=== PATIENT | female | born 1975 | race African-American/Black ===

== ENCOUNTER 2023-07-13 15:13 | Inpatient (IN) | payer OTHER ==
[2023-07-13] MEDS ORDERED: SODIUM CHLORIDE 1,000 ML IV STA (16:09)
[2023-07-13 16:33] LABS: BASO % 0.5 % (0-2.0); EOS % 1.9 % (0-4.5); HEMATOCRIT 44.3 % (32.4-45.2); HEMOGLOBIN 14.8 GM/dL (10.7-15.3); LYMPH % 29.9 % (8-40); MCH 26.7 pg (25.7-33.7); MCHC 33.4 g/dl (32.0-36.0); MEAN PLT VOLUME 8.3 fl (7.5-11.1); MONO % 7.8 % (3.8-10.2); NEUT % 59.9 % (42.8-82.8); PLATELET COUNT 273 10^3/uL (134-434); RBC 5.54 M/mm3 (3.60-5.2); RDW 15.6 % (11.6-15.6); WHITE BLOOD COUNT 5.7 K/mm3 (4.0-10.0)
[2023-07-13 16:40] LABS: INR 1.38 (0.83-1.09); PROTHROMBIN TIME (PATIENT) 15.9 SEC (9.7-13.0)
[2023-07-13 16:42] LABS: ACTIVATED PTT 29.5 SECONDS (25.2-36.5)
[2023-07-13 17:12] LABS: POTASSIUM 3.6 mmol/L (3.5-5.1)
[2023-07-13 17:15] LABS: BLOOD UREA NITROGEN 14.9 mg/dL (7-18); CALCIUM 8.6 mg/dL (8.5-10.1); MAGNESIUM 2.2 mg/dL (1.8-2.4)
[2023-07-13 17:16] LABS: ALBUMIN 3.1 g/dl (3.4-5.0)
[2023-07-13 17:18] LABS: PHOSPHOROUS 3.8 mg/dL (2.5-4.9)
[2023-07-13 17:19] LABS: BILIRUBIN,TOTAL 1.1 mg/dL (0.2-1)
[2023-07-13 17:20] LABS: TOT PROT 6.2 g/dl (6.4-8.2)
[2023-07-13] MEDS ORDERED: dilTIAZem HCL 50 MG/10 ML - 10 ML VIAL IVPUSH ONE ×2 (18:16→18:50)
[2023-07-13] MEDS ORDERED: dilTIAZem HCL 50 MG/10 ML - 10 ML VIAL ONE (18:37)
[2023-07-13 18:50] LABS: URINE APPEARANCE CLEAR; URINE BILIRUBIN NEGATIVE (NEGATIVE); URINE COLOR YELLOW; URINE GLUCOSE (UA) NEGATIVE (NEGATIVE); URINE KETONE NEGATIVE (NEGATIVE); URINE LEUK ESTERASE NEGATIVE (NEGATIVE); URINE NITRITE NEGATIVE (NEGATIVE); URINE PROTEIN NEGATIVE (NEGATIVE)
[2023-07-13] MEDS ORDERED: FUROSEMIDE 40 MG/4 ML INJECTABLE VIAL IVPUSH SCH (21:14)
[2023-07-13] MEDS ORDERED: dilTIAZem HCL 25 MG/5 ML - 5 ML VIAL IVPUSH ONE (21:17)
[2023-07-13] MEDS ORDERED: FUROSEMIDE 40 MG/4 ML INJECTABLE VIAL IVPUSH ONE (21:30)
[2023-07-14] MEDS: FUROSEMIDE 40 MG/4 ML INJECTABLE VIAL IVPUSH SCH ×2 (06:05→13:37)
[2023-07-14 07:35] LABS: HEMATOCRIT 40.6 % (32.4-45.2); HEMOGLOBIN 13.2 GM/dL (10.7-15.3); MCH 26.4 pg (25.7-33.7); MCHC 32.4 g/dl (32.0-36.0); MEAN CELL VOLUME 81.4 fl (80-96); MEAN PLT VOLUME 8.2 fl (7.5-11.1); PLATELET COUNT 204 10^3/uL (134-434); RBC 4.99 M/mm3 (3.60-5.2); RDW 15.2 % (11.6-15.6); WHITE BLOOD COUNT 4.7 K/mm3 (4.0-10.0)
[2023-07-14] MEDS: metoPROLOL SUCCINATE 25 MG TAB.SR.24H (FP) PO SCH ×2 (09:07→09:08)
[2023-07-14 09:13] LABS: CHLORIDE 104 mmol/L (98-107); SODIUM 145 mmol/L (136-145)
[2023-07-14 09:23] LABS: BLOOD UREA NITROGEN 10.5 mg/dL (7-18); CALCIUM 8.4 mg/dL (8.5-10.1); CO2 32 mmol/L (21-32); GLUCOSE,RANDOM 91 mg/dL (74-106)
[2023-07-14 09:24] LABS: ALBUMIN 2.9 g/dl (3.4-5.0)
[2023-07-14 09:26] LABS: SGPT/ALT 53 U/L (13-61)
[2023-07-14 09:27] LABS: CREATININE 0.8 mg/dL (0.55-1.3); SGOT/AST 75 U/L (15-37)
[2023-07-14 09:28] LABS: BILIRUBIN,TOTAL 1.3 mg/dL (0.2-1); TOT PROT 5.6 g/dl (6.4-8.2)
[2023-07-14 09:31] LABS: ALK PHOS 185 U/L (45-117); ANION GAP 9 mmol/L (4-13); POTASSIUM 2.9 mmol/L (3.5-5.1)
[2023-07-14] MEDS ORDERED: ENOXAPARIN NA (PORCINE) 40 MG/0.4 ML DISP.SYRIN SQ SCH (10:00)
[2023-07-14] MEDS ORDERED: POTASSIUM CHLORIDE ORAL LIQUID 20 MEQ/15 ML PO ONE ×2 (11:30→14:00)
[2023-07-14] MEDS ORDERED: KCL 10 MEQ IVPB 10 MEQ/100 ML INFUS.BAG IVPB SCH (12:00)
[2023-07-14] MEDS ORDERED: dilTIAZem HCL 30 MG TABLET PO SCH ×2 (21:15)
[2023-07-14] MEDS: APIXABAN 5 MG TABLET PO SCH (21:28)
[2023-07-14] MEDS ORDERED: metoPROLOL SUCCINATE 25 MG TAB.SR.24H (FP) PO SCH (22:00)
[2023-07-15] MEDS: FUROSEMIDE 40 MG/4 ML INJECTABLE VIAL IVPUSH SCH ×2 (05:52→13:51)
[2023-07-15 08:39] LABS: BASO % 0.9 % (0-2.0); EOS % 4.1 % (0-4.5); HEMATOCRIT 44.2 % (32.4-45.2); HEMOGLOBIN 14.5 GM/dL (10.7-15.3); LYMPH % 30.6 % (8-40); MCH 26.8 pg (25.7-33.7); MCHC 32.8 g/dl (32.0-36.0); MEAN CELL VOLUME 81.6 fl (80-96); MEAN PLT VOLUME 8.1 fl (7.5-11.1); MONO % 6.9 % (3.8-10.2); NEUT % 57.5 % (42.8-82.8); PLATELET COUNT 264 10^3/uL (134-434); RBC 5.42 M/mm3 (3.60-5.2); RDW 15.7 % (11.6-15.6); WHITE BLOOD COUNT 5.3 K/mm3 (4.0-10.0)
[2023-07-15 08:53] LABS: POTASSIUM 3.2 mmol/L (3.5-5.1)
[2023-07-15 08:55] LABS: CALCIUM 8.9 mg/dL (8.5-10.1)
[2023-07-15 08:56] LABS: ALBUMIN 3.2 g/dl (3.4-5.0); MAGNESIUM 1.9 mg/dL (1.8-2.4)
[2023-07-15 08:59] LABS: CREATININE 0.9 mg/dL (0.55-1.3)
[2023-07-15 09:00] LABS: PHOSPHOROUS 4.4 mg/dL (2.5-4.9)
[2023-07-15 09:01] LABS: BILIRUBIN,TOTAL 1.1 mg/dL (0.2-1)
[2023-07-15 09:02] LABS: TOT PROT 6.4 g/dl (6.4-8.2)
[2023-07-15] MEDS: APIXABAN 5 MG TABLET PO SCH ×2 (09:20→21:55)
[2023-07-15] MEDS: SACUBITRIL/VALSARTAN 24 MG-26 MG TABLET PO SCH ×2 (09:20→21:55)
[2023-07-15] MEDS ORDERED: METOPROLOL TARTRATE 50 MG TABLET (FP) PO ONE (14:30)
[2023-07-15] MEDS ORDERED: POTASSIUM CHLORIDE TABS 10 MEQ TABLET.ER (FP) PO ONE (14:30)
[2023-07-15 22:24] VITALS: BMI 28.3
[2023-07-16] MEDS: FUROSEMIDE 40 MG/4 ML INJECTABLE VIAL IVPUSH SCH ×2 (06:22→14:44)
[2023-07-16 07:59] LABS: POTASSIUM 3.6 mmol/L (3.5-5.1)
[2023-07-16 08:03] LABS: CALCIUM 8.6 mg/dL (8.5-10.1)
[2023-07-16 08:04] LABS: ALBUMIN 2.9 g/dl (3.4-5.0); BLOOD UREA NITROGEN 15.1 mg/dL (7-18); MAGNESIUM 1.9 mg/dL (1.8-2.4)
[2023-07-16 08:08] LABS: BILIRUBIN,TOTAL 1.2 mg/dL (0.2-1)
[2023-07-16 08:09] LABS: TOT PROT 6.2 g/dl (6.4-8.2)
[2023-07-16] MEDS: APIXABAN 5 MG TABLET PO SCH ×2 (09:30→21:16)
[2023-07-16] MEDS: SACUBITRIL/VALSARTAN 24 MG-26 MG TABLET PO SCH ×2 (09:30→21:16)
[2023-07-16] MEDS: POTASSIUM CHLORIDE TABS 20 MEQ TABLET.ER (FP) PO SCH (09:30)
[2023-07-16] MEDS ORDERED: BISACODYL 10 MG SUPP.RECT PR PRN (11:37)
[2023-07-16] MEDS: POLYETHYLENE GLYCOL (HEALTHYLAX) 3350 17 GM PACKET PO SCH (13:22)
[2023-07-16] MEDS: PANTOPRAZOLE SODIUM 40 MG VIAL IVPUSH SCH (21:16)
[2023-07-17] MEDS: FUROSEMIDE 40 MG/4 ML INJECTABLE VIAL IVPUSH SCH (06:31)
[2023-07-17 07:29] LABS: MCH 26.2 pg (25.7-33.7); MEAN CELL VOLUME 81.9 fl (80-96); MEAN PLT VOLUME 8.1 fl (7.5-11.1); PLATELET COUNT 276 10^3/uL (134-434); RBC 5.75 M/mm3 (3.60-5.2); RDW 15.5 % (11.6-15.6); WHITE BLOOD COUNT 5.1 K/mm3 (4.0-10.0)
[2023-07-17 07:49] LABS: POTASSIUM 3.5 mmol/L (3.5-5.1)
[2023-07-17 07:51] LABS: CALCIUM 8.3 mg/dL (8.5-10.1)
[2023-07-17 07:54] LABS: BLOOD UREA NITROGEN 16.3 mg/dL (7-18)
[2023-07-17 07:55] LABS: CREATININE 0.9 mg/dL (0.55-1.3)
[2023-07-17] MEDS: PANTOPRAZOLE SODIUM 40 MG VIAL IVPUSH SCH (10:27)
[2023-07-17] MEDS: POLYETHYLENE GLYCOL (HEALTHYLAX) 3350 17 GM PACKET PO SCH (10:28)
[2023-07-17] MEDS: APIXABAN 5 MG TABLET PO SCH ×2 (10:28→21:15)
[2023-07-17] MEDS: POTASSIUM CHLORIDE TABS 20 MEQ TABLET.ER (FP) PO SCH (10:28)
[2023-07-17] MEDS: SACUBITRIL/VALSARTAN 24 MG-26 MG TABLET PO SCH ×2 (10:28→21:15)
[2023-07-17] MEDS: FUROSEMIDE 40 MG TABLET (FP) PO SCH (13:44)
[2023-07-18] MEDS: FUROSEMIDE 40 MG TABLET (FP) PO SCH ×2 (06:52→13:47)
[2023-07-18 07:53] LABS: BASO % 0.9 % (0-2.0); EOS % 3.7 % (0-4.5); HEMATOCRIT 47.1 % (32.4-45.2); HEMOGLOBIN 14.9 GM/dL (10.7-15.3); LYMPH % 41.2 % (8-40); MCHC 31.7 g/dl (32.0-36.0); MEAN CELL VOLUME 82.2 fl (80-96); MEAN PLT VOLUME 8.2 fl (7.5-11.1); MONO % 5.6 % (3.8-10.2); NEUT % 48.6 % (42.8-82.8); PLATELET COUNT 283 10^3/uL (134-434); RBC 5.73 M/mm3 (3.60-5.2); RDW 15.4 % (11.6-15.6)
[2023-07-18 08:01] LABS: POTASSIUM 4.4 mmol/L (3.5-5.1)
[2023-07-18 08:06] LABS: ALBUMIN 2.7 g/dl (3.4-5.0); BLOOD UREA NITROGEN 17.1 mg/dL (7-18); CALCIUM 8.2 mg/dL (8.5-10.1); MAGNESIUM 2.1 mg/dL (1.8-2.4)
[2023-07-18 08:09] LABS: CREATININE 0.9 mg/dL (0.55-1.3); PHOSPHOROUS 4.2 mg/dL (2.5-4.9)
[2023-07-18 08:11] LABS: BILIRUBIN,TOTAL 0.7 mg/dL (0.2-1); TOT PROT 5.8 g/dl (6.4-8.2)
[2023-07-18 09:47] VITALS: RESP 18
[2023-07-18] MEDS: SACUBITRIL/VALSARTAN 24 MG-26 MG TABLET PO SCH (09:54)
[2023-07-18] MEDS: POLYETHYLENE GLYCOL (HEALTHYLAX) 3350 17 GM PACKET PO SCH (09:54)
[2023-07-18] MEDS: APIXABAN 5 MG TABLET PO SCH (09:54)
[2023-07-18] MEDS ORDERED: PANTOPRAZOLE 20 MG TABLET PO SCH (10:00)
[2023-07-18] MEDS: POTASSIUM CHLORIDE TABS 20 MEQ TABLET.ER (FP) PO SCH (10:31)
[2023-07-18 13:51] VITALS: BP 118/77; PULSE 107; TEMP 98.3
[2023-07-18] MEDS ORDERED: metoPROLOL SUCCINATE 25 MG TAB.SR.24H (FP) PO ONE (15:18)
== END 2023-07-18 18:39 | disposition home or self-care (01) | DRG 201 ==
LOC: JER 15:13 → JERBED 19:23 → J4W 20:28
PROVIDERS: ADMIT Internal Medicine; ATTEND Internal Medicine
DX: I48.91 Unspecified atrial fibrillation (principal); I21.A1 Myocardial infarction type 2; I11.0 Hypertensive heart disease with heart failure; I50.23 Acute on chronic systolic (congestive) heart failure; K92.0 Hematemesis; E87.6 Hypokalemia; R74.8 Abnormal levels of other serum enzymes; D25.9 Leiomyoma of uterus, unspecified; K76.0 Fatty (change of) liver, not elsewhere classified
CPT/HCPCS: 0241U-QW; 36415; 71046-TC-FY; 74178-TC; 74181-TC; 76705-TC; 80048; 80053; 81003; 83036; 83605; 83690; 83735; 83880; 84100; 84132; 84439; 84443; 84484; 84702; 84703; 85025; 85027; 85610; 85730; 86705; 86708; 86803; 86850; 86900; 86901; 87086; 87340; 87517; 93005; 93010; 93306-TC; 99291; 99292; Q9967